=== PATIENT | male | born 1985 | race Caucasian/White ===

== ENCOUNTER → 2016-09-26 | Outpatient (CLI) | payer OTHER ==
[2016-09-26 18:03] LABS: FERRITIN 194 NG/ML (26-388); PERCENT SATURATION 26.5 % (19.7-37.4); TOTAL IRON BINDING CAPACITY 362 UG/DL (250-450)
--- NOTE | 2016-09-27 02:55 | REP ---
Clinical: Pain. Technique: AP, lateral, bilateral oblique and sunrise views of the right knee. Findings: Age-related changes include cortical irregularity to the femoral condyles as well as minimally increased sclerosis to the medial tibial plateau. The patellofemoral joint space appears intact and relatively normal. No acute fracture or dislocation. No effusion. Impression: Mild age-related changes by radiographic evaluation. If the patient remains symptomatic consider MRI for further investigation. Signed by Almas Patrick MD 09/27/2016 02:46 A
== END ==
LOC: M WUC 11:06
PROVIDERS: ATTEND Nurse Practitioner Adult Health
DX: R74.8 Abnormal levels of other serum enzymes (principal)

== ENCOUNTER → 2016-10-02 | Outpatient (REF) | payer OTHER | LOC: M SMT 12:53 | PROVIDERS: ATTEND Nurse Practitioner Family | DX: N52.9 Male erectile dysfunction, unspecified (principal) ==

== ENCOUNTER → 2016-11-05 | Outpatient (REF) | payer OTHER | LOC: M SMT 13:52 | PROVIDERS: ATTEND Nurse Practitioner Family | DX: R31.9 Hematuria, unspecified (principal) ==

== ENCOUNTER → 2016-11-13 | Outpatient (REF) | payer OTHER | LOC: M SMT 12:45 | PROVIDERS: ATTEND Nurse Practitioner Family | DX: R31.9 Hematuria, unspecified (principal) ==

== ENCOUNTER → 2016-11-20 | Outpatient (CLI) | payer OTHER ==
[~2016-11-20] MED LIST: ISOVUE-370 76% 100ML VIAL (Q9967) As Ordered ONE
--- NOTE | 2016-11-21 07:29 | REP ---
PRE- AND POST CONTRAST CT OF THE ABDOMEN AND PELVIS: CLINICAL: Hematuria. TECHNIQUE: Axial precontrast, contrast enhanced and delayed images of the abdomen and pelvis from the lung bases to the pubic symphysis using 100 mL Isovue 370 intravenous contrast material with coronal and sagittal reformations. FINDINGS: Evaluation of the urinary tract system demonstrates normal appearance to the bilateral kidneys/ureters and bladder. Symmetric parenchymal enhancement is appreciated to the kidneys along with normal excretion into the collecting system on delayed imaging. There is no hydroureteronephrosis, nephroureterolithiasis, perinephric stranding, cystic or renal mass lesion. The liver, spleen, pancreas, gallbladder, and bilateral adrenal glands are normal. The enteric system is without obstruction or acute inflammatory process. A small to moderate hiatal hernia is identified at the gastroesophageal junction. A few scattered colonic diverticula noted without acute diverticulitis. Pelvis demonstrates partially collapsed normal bladder and age appropriate prostate/seminal vesicles. No ascites. No free air. No adenopathy. Vasculature appears normal and without aortic aneurysm or dissection. Surrounding musculoskeletal structures are intact and without focal osseous abnormality. IMPRESSION: 1. Small to moderate hiatal hernia. 2. A few scattered colonic diverticula without acute diverticulitis. 3. Normal appearance to the urinary tract system. 4. No acute intra-abdominal or pelvic pathology appreciated. Signed by Almas Patrick MD 11/27/2016 08:59 A
== END ==
LOC: M RAD 13:55
PROVIDERS: ATTEND Nurse Practitioner Family
DX: K44.0 Diaphragmatic hernia with obstruction, without gangrene (principal); K57.90 Diverticulosis of intestine, part unspecified, without perforation or abscess without bleeding
CPT/HCPCS: 74178; Q9967

== ENCOUNTER 2017-07-27 13:26 | Emergency (ER) | payer OTHER | END 2017-07-27 14:32 | disposition home or self-care (01) | LOC: M ED 13:26 | DX: R51 Headache (principal); K02.9 Dental caries, unspecified; M54.5 Low back pain; G89.29 Other chronic pain; F99 Mental disorder, not otherwise specified | CPT/HCPCS: 99282 ==

== ENCOUNTER 2019-01-29 20:22 | Emergency (ER) | payer OTHER ==
[~2019-01-29] VITALS: Ht 193 cm; Wt 152.3 kg
[~2019-01-29 20:22] MED LIST changes: +AMOX500C PO; +IBUP-1114 PO; -ISOVUE-370 76% 100ML VIAL (Q9967) As Ordered ONE; +OXYC1TAB23 PO
[2019-01-29 21:18] LABS: HEMATOCRIT 44.7 % (42.0-52.0); HEMOGLOBIN 14.6 g/dl (13.5-17.5); MEAN CORPUSCULAR HEMOGLOBIN 28.9 pg (27.0-33.0); MEAN CORPUSCULAR HGB CONC 32.7 g/dl (32.0-36.5); MEAN CORPUSCULAR VOLUME 88.5 fl (80.0-96.0); PLATELET COUNT, AUTOMATED 348 10^3/uL (150-450); RED BLOOD COUNT 5.05 10^6/uL (4.30-6.10); WHITE BLOOD COUNT 11.5 10^3/uL (4.0-10.0)
[2019-01-29 21:34] LABS: INR 1.04; PROTHROMBIN TIME 13.3 SECONDS (11.8-14.0)
[2019-01-29 21:35] LABS: PARTIAL THROMBOPLASTIN TIME 33.2 SECONDS (25.0-38.4)
[2019-01-29 21:53] LABS: ALBUMIN 3.5 GM/DL (3.2-5.2); ALT/SGPT 44 U/L (12-78); BILIRUBIN,TOTAL 0.3 MG/DL (0.2-1.0); BLOOD UREA NITROGEN 11 MG/DL (7-18); CALCIUM LEVEL 8.6 MG/DL (8.5-10.1); CARBON DIOXIDE LEVEL 28 MEQ/L (21-32); CHLORIDE LEVEL 107 MEQ/L (98-107); CREATININE FOR GFR 0.97 MG/DL (0.70-1.30); GLOMERULAR FILTRATION RATE > 60.0 (>60); GLUCOSE, FASTING 110 MG/DL (70-100); POTASSIUM SERUM 3.8 MEQ/L (3.5-5.1); SODIUM LEVEL 141 MEQ/L (136-145); TOTAL PROTEIN 7.1 GM/DL (6.4-8.2)
[2019-01-30] MEDS ORDERED: METOCLOPRAMIDE INJ 10MG/2ML VIAL (J2765) IV ONE
[2019-01-30] MEDS ORDERED: DICYCLOMINE 10 MG CAP PO ONE
[2019-01-30] MEDS ORDERED: NS 1,000 ML IV ONE
[2019-01-30] MEDS ORDERED: ISOVUE-370 76% 100ML VIAL (Q9967) As Ordered ONE (00:21)
--- NOTE | 2019-01-30 02:06 | REPVR ---
EXAM: CT Abdomen and Pelvis With Contrast EXAM DATE/TIME: 01/30/2019 12:46 AM CLINICAL HISTORY: 33 years old, male; Abdominal pain; Localized; Lower; Additional Info: lower abd pain, hematochezia TECHNIQUE: Imaging protocol: Axial computed tomography images of the abdomen and pelvis with intravenous contrast. Coronal and sagittal reformatted images were created and reviewed. Radiation optimization: All CT scans at this facility use at least one of these dose optimization techniques: automated exposure control; mA and/or kV adjustment per patient size (includes targeted exams where dose is matched to clinical indication); or iterative reconstruction. Contrast material: ISOVUE 370; Contrast volume: 100 ml; Contrast route: IV; COMPARISON: No relevant prior studies available. FINDINGS: Liver: Normal. No mass. Gallbladder and bile ducts: Normal. No calcified stones. No ductal dilation. Pancreas: Normal. No ductal dilation. Spleen: Normal. No splenomegaly. Adrenals: Normal. No mass. Kidneys and ureters: Normal. No hydronephrosis. Stomach and bowel: Small sliding-type gastric hiatal hernia. Negative for colonic diverticulitis. No abnormal bowel dilatation. Left colon is collapsed and diffusely thickened. Minimal pericolonic haziness associated with the left colon. Appendix: Appendix is normal. Intraperitoneal space: Normal. No free air. No significant fluid collection. Vasculature: Normal. No abdominal aortic aneurysm. Lymph nodes: Normal. No enlarged lymph nodes. Bladder: Unremarkable as visualized. Reproductive: Prostate is normal in size. Bones/joints: No acute fracture. No dislocation. Soft tissues: There is dependent subcutaneous edema. IMPRESSION: 1. Left colon is collapsed and diffusely thickened. Colitis cannot be excluded. 2. Small gastric hiatal hernia. Electronically signed by: Ira Feng On 01/30/2019 02:05:41 AM
[2019-01-30 02:10] LABS: BILIRUBIN,DIRECT 0.1 MG/DL (0.0-0.2); LIPASE 186 U/L (73-393)
[2019-01-30] MEDS ORDERED: CIPROFLOXACIN 500 MG TAB PO ONE (02:45)
[2019-01-30] MEDS ORDERED: DICY10CA13 PO (02:46)
[2019-01-30] MEDS ORDERED: CIPR-249 PO (02:46)
[2019-01-30] MEDS ORDERED: ZOFR4TAB16 PO (02:46)
[2019-01-30 02:55] VITALS: BP 130/81
== END 2019-01-30 02:58 | disposition home or self-care (01) ==
LOC: M ED 20:22
DX: K52.9 Noninfective gastroenteritis and colitis, unspecified (principal)
CPT/HCPCS: 74177; 80053; 81001; 82248; 83690; 85027; 85610; 85730; 96374; 99284; J2765; Q9967

== ENCOUNTER 2019-09-28 06:38 | Day surgery (SDC) | payer OTHER ==
[~2019-09-28] VITALS: Ht 193 cm; Wt 149.7 kg
[~2019-09-28 06:38] MED LIST changes: +CIPR-249 PO; +CYMB60CA3 PO; +DICY10CA13 PO; +NS 1,000 ML IV ONE; +ZOFR4TAB16 PO
[2019-09-28] MEDS ORDERED: LIDOCAINE 2% INJ 100 MG/5 ML SDV (FOR ANES.) As Ordered ONE (07:17)
[2019-09-28] MEDS ORDERED: propofoL 200 MG/20 ML VIAL As Ordered ONE ×3 (07:17→07:53)
--- NOTE | 2019-09-28 08:04 | ROOR ---
Patient Name: Jeffy Becker Procedure Date: 09/28/2019 7:31 AM Date of : 1985 Age: 34 Room: [facility] Gender: Male Note Status: Finalized Procedure: Colonoscopy Indications: Abnormal CT of the GI tract, Change in bowel habits Providers: Jeffy Driver MD Referring MD: Amanda De Luna NP Requesting Provider: Medicines: Monitored Anesthesia Care Complications: No immediate complications. Procedure: Pre-Anesthesia Assessment: - Prior to the procedure, a History and Physical was performed, and patient medications and allergies were reviewed. The patient is competent. The risks and benefits of the procedure and the sedation options and risks were discussed with the patient. All questions were answered and informed consent was obtained. Patient identification and proposed procedure were verified by the physician, the nurse and the anesthesiologist in the procedure room. Mental Status Examination: alert and oriented. Airway Examination: normal oropharyngeal airway and neck mobility. Respiratory Examination: clear to auscultation. CV Examination: normal. Prophylactic Antibiotics: The patient does not require prophylactic antibiotics. Prior Anticoagulants: The patient has taken no previous anticoagulant or antiplatelet agents. ASA Grade Assessment: III - A patient with severe systemic disease. After reviewing the risks and benefits, the patient was deemed in satisfactory condition to undergo the procedure. The anesthesia plan was to use monitored anesthesia care (MAC). Immediately prior to administration of medications, the patient was re-assessed for adequacy to receive sedatives. The heart rate, respiratory rate, oxygen saturations, blood pressure, adequacy of pulmonary ventilation, and response to care were monitored throughout the procedure. The physical status of the patient was re-assessed after the procedure. The Colonoscope was introduced through the anus and advanced to the terminal ileum, with identification of the appendiceal orifice and IC valve. The colonoscopy was performed without difficulty. The patient tolerated the procedure well. The quality of the bowel preparation was good. The terminal ileum, ileocecal valve, appendiceal orifice, and rectum were photographed. Scope insertion time was 2 minutes. Scope withdrawal time was 9 minutes. The total duration of the procedure was 12 minutes. Findings: The perianal and digital rectal examinations were normal. The terminal ileum appeared normal. Normal mucosa was found in the entire colon. Biopsies for histology were taken with a cold forceps from the descending colon, sigmoid colon and rectosigmoid colon for evaluation of microscopic colitis. Verification of patient identification for the specimen was done by the physician and nurse using the patient's name, date and medical record number. Estimated blood loss was minimal. A few medium-mouthed diverticula were found from sigmoid to descending colon. There was no evidence of diverticular bleeding. Non-bleeding external and internal hemorrhoids were found during retroflexion. The hemorrhoids were medium-sized. Impression: - The examined portion of the ileum was normal. - Normal mucosa in the entire examined colon. Biopsied. - Mild diverticulosis from sigmoid to descending colon. There was no evidence of diverticular bleeding. - Non-bleeding external and internal hemorrhoids. Recommendation: - Patient has a contact number available for emergencies. The signs and symptoms of potential delayed complications were discussed with the patient. Return to normal activities tomorrow. Written discharge instructions were provided to the patient. - High fiber diet. - Continue present medications. - Use fiber, for example Citrucel, Fibercon, Konsyl or Metamucil. - Await pathology results. - Repeat colonoscopy at age 50 for screening purposes. - Telephone GI clinic for pathology results in 2 weeks. - Return to primary care physician. Jeffy Driver MD Jeffy Driver MD 09/28/2019 8:03:35 AM Electronically signed by Jeffy Driver MD Number of Addenda: 0 Note Initiated On: 09/28/2019 7:31 AM Estimated Blood Loss: Estimated blood loss was minimal.
[2019-09-28 08:30] VITALS: BP 121/70
== END 2019-09-28 08:30 | disposition home or self-care (01) ==
LOC: M OPP 06:38
PROVIDERS: ATTEND Internal Medicine Gastroenterology
DX: K64.8 Other hemorrhoids (principal); K57.30 Diverticulosis of large intestine without perforation or abscess without bleeding; K51.519 Left sided colitis with unspecified complications; R19.4 Change in bowel habit; R93.3 Abnormal findings on diagnostic imaging of other parts of digestive tract; Z79.899 Other long term (current) drug therapy; Z91.018 Allergy to other foods

== ENCOUNTER 2020-03-12 16:35 | Emergency (ER) | payer OTHER ==
[~2020-03-12] VITALS: Ht 195.6 cm; Wt 156.7 kg
[2020-03-12 17:47] LABS: BASO # 0.1 10^3/uL (0.0-0.2); BASO % 0.7 % (0.0-1.0); EOS # 0.4 10^3/uL (0.0-0.5); EOS % 3.6 % (0.0-3.0); HEMATOCRIT 46.2 % (42.0-52.0); HEMOGLOBIN 14.8 g/dl (13.5-17.5); LYMPH # 2.9 10^3/uL (1.5-5.0); LYMPH % 24.7 % (24.0-44.0); MEAN CORPUSCULAR VOLUME 87.3 fl (80.0-96.0); MONO % 8.6 % (0.0-5.0); NEUTROPHILS # 7.3 10^3/uL (1.5-8.5); NEUTROPHILS % 62.1 % (36.0-66.0); PLATELET COUNT, AUTOMATED 372 10^3/uL (150-450); RED BLOOD COUNT 5.29 10^6/uL (4.30-6.10); WHITE BLOOD COUNT 11.8 10^3/uL (4.0-10.0)
[2020-03-12] MEDS ORDERED: ISOVUE-370 76% 100ML VIAL As Ordered ONE (17:59)
[2020-03-12 18:17] LABS: ALBUMIN 3.5 GM/DL (3.2-5.2); ALT/SGPT 38 U/L (12-78); BILIRUBIN,DIRECT 0.2 MG/DL (0.0-0.2); BILIRUBIN,TOTAL 0.3 MG/DL (0.2-1.0); CK-MB VALUE MASS < 1.0 NG/ML (<3.6); CPK CREATINE PHOSPHOKINASE 69 U/L (39-308); LIPASE 43 U/L (73-393); MB/CK RELATIVE INDEX 1.45 (< OR =4); TOTAL PROTEIN 6.9 GM/DL (6.4-8.2); TROPONIN I < 0.02 NG/ML (< 0.10)
--- NOTE | 2020-03-12 19:09 | REPVR ---
PROCEDURE INFORMATION: Exam: CT Angiography Chest With Contrast Exam date and time: 03/12/2020 6:06 PM Age: 34 years old Clinical indication: Pain; Pleuordynia; Additional info: Pain with inspiration, SOB TECHNIQUE: Imaging protocol: Computed tomographic angiography of the chest with intravenous contrast. 3D rendering (Not supervised by radiologist): MIP and/or 3D reconstructed images were created by the technologist. Radiation optimization: All CT scans at this facility use at least one of these dose optimization techniques: automated exposure control; mA and/or kV adjustment per patient size (includes targeted exams where dose is matched to clinical indication); or iterative reconstruction. Contrast material: ISOVUE 370; Contrast volume: 100 ml; Contrast route: INTRAVENOUS (IV); COMPARISON: CR CHEST 2 VIEW 03/12/2020 4:22 PM (The report from this study was not available for review at the time of this interpretation.) FINDINGS: Pulmonary arteries: No pulmonary embolism. Aorta: The thoracic aorta is intact and patent. There is no thoracic aortic aneurysm, pseudoaneurysm, penetrating atherosclerotic ulcer, intramural hematoma, or dissection. Great vessels off aortic arch: The brachiocephalic artery, imaged proximal portions of the common carotid arteries, imaged proximal portions of the vertebral arteries, and subclavian arteries are intact. No stenosis or occlusion of these vessels is noted. Thyroid: There is a 3.6 cm complex cystic and solid nodule in the isthmus and right lobe of the thyroid gland (image 47 of the coronal series 503). The thyroid gland was not fully imaged. Tracheobronchial tree: Intact and patent. Lungs: There is dependent atelectasis in the upper and lower lobes. There is a mild mosaic attenuation pattern in both lower lobes, which may indicate air trapping. The lungs are otherwise clear. There is no lung consolidation or mass. No emphysematous changes or interstitial lung disease is noted. Pleural space: There is a trace right pleural effusion that measures water density and is not loculated. No pneumothorax. No calcified pleural plaques. Heart: No cardiomegaly or pericardial effusion. The ratio of the diameter of the right ventricle to the diameter of the left ventricle measures less than 1, which is within normal limits and there is no evidence for a right ventricular strain. Mediastinal space: No mediastinal fluid collection or pneumomediastinum is noted. There is a small sliding hiatal hernia. Lymph nodes: No enlarged lymph nodes. Gallbladder and bile ducts: No calcified gallstones are noted. No gallbladder wall thickening, pericholecystic fluid, or pericholecystic inflammatory changes are identified. No dilation of the bile ducts is noted. No calcified stones are seen in the common bile duct. Bones/joints: There is no fracture or dislocation. No suspicious osteolytic or osteoblastic lesion. There are endplate spurs in the thoracic spine. Soft tissues: Unremarkable. IMPRESSION: 1. No pulmonary embolism. 2. No CT evidence for pneumonia. Mild mosaic attenuation pattern in both lower lobes, which may indicate air trapping. 3. Trace right pleural effusion. 4. 3.6 cm complex nodule in the isthmus and right lobe of the thyroid gland. Further evaluation with a thyroid ultrasound is recommended. COMMENTS: Consistent with the [employer]'s Incidental Findings Committee white paper (J Am Hoang Radiol 2015): In patients under 35 years old with an incidental thyroid nodule equal to or greater than [address], MRI or extrathyroidal US, further evaluation with dedicated thyroid US is recommended for patients with normal life expectancy and without comorbidities. For smaller nodules without suspicious features, no further evaluation or follow up is recommended. Electronically signed by: Brian Gutiérrez On 03/12/2020 19:08:55 PM
[2020-03-12 20:19] VITALS: BP 136/63
--- NOTE | 2020-03-27 08:14 | ECGEPIP ---
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
== END 2020-03-12 20:21 | disposition home or self-care (01) ==
LOC: M ED 16:35
DX: R07.1 Chest pain on breathing (principal); R06.02 Shortness of breath; E04.1 Nontoxic single thyroid nodule; Z91.018 Allergy to other foods
CPT/HCPCS: 71275; 80047; 80076; 82550; 82553; 83690; 84484; 85025; 93005; 99284; Q9967

== ENCOUNTER → 2020-03-12 | Outpatient (CLI) | payer OTHER ==
[~2020-03-12] MED LIST changes: -NS 1,000 ML IV ONE
--- NOTE | 2020-04-12 09:51 | REP ---
CHEST X-RAY CLINICAL: Chest pain and shortness of breath. TECHNIQUE: PA and lateral. COMPARISON: 08/17/2019. FINDINGS: Mediastinum and cardiac silhouette normal. Lung brown clear. No consolidation, effusion, or pneumothorax. Skeletal structures intact. IMPRESSION: No acute cardiopulmonary process or focal consolidation. MTDD
== END ==
LOC: M WUC 16:06
PROVIDERS: ATTEND Physician Assistant
DX: R06.02 Shortness of breath (principal); R07.1 Chest pain on breathing

== ENCOUNTER → 2020-03-25 | Outpatient (REF) | payer OTHER | LOC: M LAB REF 17:12 | PROVIDERS: ATTEND Internal Medicine Endocrinology, Diabetes & Metabolism | DX: E04.1 Nontoxic single thyroid nodule (principal) ==

== ENCOUNTER → 2020-05-09 | Outpatient (REF) | payer OTHER ==
[2020-05-11 06:12] LABS: MUMPS VIRUS IgG ANTIBODY 57.6 AU/mL (Immune >10.9)
== END ==
LOC: M LAB REF 16:32
PROVIDERS: ATTEND Nurse Practitioner Adult Health
DX: Z02.0 Encounter for examination for admission to educational institution (principal)

== ENCOUNTER → 2022-05-21 | Outpatient (REF) | payer OTHER ==
[~2022-05-21] MED LIST changes: -CYMB60CA3 PO; +CYMB60CA4 PO
== END ==
LOC: M LAB REF 16:14
PROVIDERS: ATTEND Nurse Practitioner Adult Health
DX: E03.9 Hypothyroidism, unspecified (principal)

== ENCOUNTER → 2022-05-22 | Outpatient (CLI) | payer OTHER | LOC: M WUC 08:48 | PROVIDERS: ATTEND Nurse Practitioner Adult Health | DX: R07.9 Chest pain, unspecified (principal); R06.02 Shortness of breath ==

== ENCOUNTER → 2023-11-26 | Outpatient (REF) | payer OTHER ==
[~2023-11-26] MED LIST changes: +DICY-61 PO; -DICY10CA13 PO
== END ==
LOC: M LAB REF 11:59
PROVIDERS: ATTEND Nurse Practitioner Adult Health
DX: E03.9 Hypothyroidism, unspecified (principal)

== ENCOUNTER → 2024-05-05 | Outpatient (REF) | payer OTHER ==
[2024-05-05 14:38] LABS: FREE T3 3.8 PG/ML (2.3-4.2)
[2024-05-05 14:39] LABS: THYROID PEROXIDASE ANTIBODY < 28.0 U/ML (<60.0)
== END ==
LOC: M LAB REF 13:42
PROVIDERS: ATTEND Nurse Practitioner Adult Health
DX: E03.9 Hypothyroidism, unspecified (principal)